=== PATIENT | male | born 1950 | race Caucasian/White ===

== ENCOUNTER 2017-05-26 06:43 | Inpatient (IN) | payer OTHER, MEDICARE ==
[2017-05-04 10:31] VITALS: BMI 32.0
--- NOTE | 2017-05-04 11:29 | PAT Medication Instructions ---
Service Date May 04, 2017. Current Home Medication List Acetaminophen (Tylenol Extra Strength), 2 TAB PO DAILY PRN for Pain or Fever Aspirin (Aspirin), 1 TAB PO QAM Calcium Carbonate-Vitamin D (Calcium 600 + D), 1 TAB PO BID Clopidogrel (Plavix), 75 MG PO QD@1700 Cyanocobalamin (Vitamin B-12 1000 Mcg), 1,000 MCG IM MONTHLY Cyanocobalamin (B-12), 1 TAB SL QAM Fenofibrate (Tricor ), 145 MG PO QAM Metoprolol Succ (Toprol Xl) (Toprol-Xl), 12.5 MG PO QAM Pantoprazole (Protonix), 40 MG PO BID Tamsulosin HCl (Tamsulosin HCl), 1 TAB PO QAM Medication Instructions For Your Scheduled Surgery - Continue as directed: Cyanocobalamin (Vitamin B-12 1000 Mcg), 1,000 MCG IM MONTHLY - Hold the following medications 7 days prior to surgery per anesthesia guidelines--check with your reimbursement liaison: Clopidogrel (Plavix), 75 MG PO QD@1700 - Hold the following medications 24 hours prior to surgery: Fenofibrate (Tricor ), 145 MG PO QAM - Hold the following medications the morning of surgery: Cyanocobalamin (B-12), 1 TAB SL QAM Calcium Carbonate-Vitamin D (Calcium 600 + D), 1 TAB PO BID - Take the following medications the morning of surgery with a sip of water: Metoprolol Succ (Toprol Xl) (Toprol-Xl), 12.5 MG PO QAM Pantoprazole (Protonix), 40 MG PO BID Tamsulosin HCl (Tamsulosin HCl), 1 TAB PO QAM Aspirin (Aspirin), 1 TAB PO QAM Acetaminophen (Tylenol Extra Strength), 2 TAB PO DAILY PRN for Pain or Fever ( if needed) - Take the following medications as scheduled the night before surgery: Pantoprazole (Protonix), 40 MG PO BID Calcium Carbonate-Vitamin D (Calcium 600 + D), 1 TAB PO BID If you have any questions please call us at [phone] or [phone] or [phone]
[2017-05-04 13:14] LABS: BUN/CREATININE RATIO 18.2 (10-20); CALCIUM 8.9 mg/dl (8.5-10.1); CREATININE 1.3 mg/dl (0.60-1.40); POTASSIUM 4.7 mmol/L (3.5-5.1)
[2017-05-04 13:17] LABS: BASO % 0.5 %; BASO ABS # 0.03 K/uL (0-0.2); COMPLETE YES; EOS % 1.6 %; HEMATOCRIT 44.4 % (42-52); IG% 0.2 %; LYMPH % 46.2 %; LYMPH ABS # 2.68 K/uL (1.2-3.4); MEAN CELL VOLUME 91.7 fL (80-100); MEAN CORPUSCULAR HEMOGLOBIN 32.6 pg (25-34); MEAN CORPUSCULAR HGB CONC 35.6 g/dl (32-36); MEAN PLATELET VOLUME 10.6 fL (7.4-10.4); MONO % 6.4 %; NEUT % 45.1 %; PLATELET COUNT 155 K/uL (130-400); RED BLOOD COUNT 4.84 M/uL (4.7-6.1); URINE APPEARANCE CLEAR (CLEAR); URINE BILIRUBIN NEG (NEG); URINE COLOR YELLOW; URINE EPITHELIAL CELL AUTO 20-30 /lpf (0-5); URINE NITRITE NEG (NEG); URINE SPECIFIC GRAVITY 1.022 (1.000-1.030); UROBILINOGEN NEG (NEG)
[2017-05-04 13:21] LABS: MANUAL MICROSCOPIC REQUIRED? NO; REVIEW REQ? NO
[2017-05-04 13:22] LABS: INR 1.1 (0.9-1.1)
--- NOTE | 2017-05-25 12:08 | HISTORY & PHYSICAL EXAMINATION ---
DATE OF ADMISSION: 05/26/2017 CHIEF COMPLAINT: Left knee pain. HISTORY OF PRESENT ILLNESS: The patient is a 67-year-old male with known osteoarthritis about his left knee. He has had previous right knee replacement surgery. He has pain and disability with activities of daily living. He has pain with prolonged weightbearing and standing activities. He has difficulty with any kneeling, bending, or squatting activities. He now desires to proceed with left total knee arthroplasty. PAST MEDICAL HISTORY: Hypertension, coronary artery disease status post bypass surgery, sleep apnea with CPAP use, osteoarthritis, kidney stones, enlarged prostate, and acid reflux. PAST SURGICAL HISTORY: Appendectomy, hernia surgery, back surgery, cholecystectomy, triple bypass surgery, cardiac stent placement, knee arthroscopy, right knee replacement, neck surgery, elbow surgery, and cataract surgery. MEDICATIONS: Toprol-XL ER 25 mg daily, Plavix 75 mg daily, pantoprazole sodium 40 mg twice daily, TriCor 145 mg daily, Flomax 0.4 mg daily, calcium plus D twice daily, baby aspirin 81 mg daily, and B12 injection monthly. ALLERGIES: PREDNISONE, WHICH CAUSES NAUSEA. SOCIAL HISTORY AND REVIEW OF SYSTEMS: Noncontributory. PHYSICAL EXAMINATION: GENERAL: Well-nourished and well-developed, obese male who appears his stated age. HEENT: Normocephalic and atraumatic. Extraocular movements intact. Oropharynx pink and moist. NECK: Supple without adenopathy. LUNGS: Clear to auscultation bilaterally. HEART: Regular rate and rhythm. ABDOMEN: Soft, nontender, nondistended, and obese. EXTREMITIES: The upper extremities are within normal limits. Left knee is neutrally aligned. His range of motion is from 0-120 degrees. X-RAYS: X-rays were reviewed. He has a slight varus aligned knee. He has [id number] arthritis of the medial compartment with complete loss of the joint space. There is mild osteoarthritis about the patellofemoral joint as well. ASSESSMENT: Left knee degenerative joint disease. PLAN: Risks versus benefits were discussed. Consent was obtained. The patient's primary care physician is Dr. Paulina Gonzalez. His learning technologies specialist is Dr. Nogueira. We will proceed with left total knee arthroplasty upon preoperative workup and medical clearance.
[2017-05-26] VITALS (8 sets, daily range): BP systolic 106–150; BP diastolic 61–89; PULSE 52–58; TEMP 36.4–36.7; O2SAT 94–97; Ht 180.3 cm; Wt 105.0 kg
[~2017-05-26] VITALS: Ht 180.3 cm; Wt 105.0 kg
[~2017-05-26 06:43] MED LIST: ACET-1257 PO; ACETAMINOPHEN 500 MG TAB PO SCH; ASPI81CH2 PO; BUPIVACAINE 0.5 % 5 MG/1 ML PF 10ML VIAL ONE; CALC-20 PO; CEFAZOLIN 2000MG IV PUSH 10 ML IV SCH; CLOP1TAB15 PO; CYAN10004 IM; CYAN50002 SL; CeleBREX 200 MG CAP PO SCH; DEXAMETHASONE 4 MG TAB PO SCH; FAMOTIDINE 20 MG TAB PO SCH; FENO145T26 PO; FLM4 PO; GABAPENTIN 300 MG CAP PO SCH; LACTATED RINGER'S 1000ML 1,000 ML IV SCH; LACTATED RINGER'S 1000ML IV SCH; METO-478 PO; METOCLOPRAMIDE HCL 10 MG TAB PO SCH; PANT40TA PO; PATIENT'S ALLERGY INFO NEEDS ENTERED SCH; ROPIVACAINE 5MG/ML 30 ML 150 MG, BUPIVACAINE/EPINEPHR 0.5% MPF 30 ML, KETOROLAC TROMETH... INFIL SCH
[2017-05-26] MEDS ORDERED: BUPIVACAINE 0.25% 30 ML VIAL ONE (06:44)
--- NOTE | 2017-05-26 07:19 | History & Physical Bridge Note ---
H&P Re-Evaluation Bridge Note: I have examined the patient, reviewed the History & Physical and in the interval since the performance of the History & Physical I have noted the following changes of clinical significance: No changes noted
[2017-05-26] MEDS ORDERED: MIDAZOLAM HCL 1 MG/ML 2ML VIAL ONE ×2 (08:53)
[2017-05-26] MEDS ORDERED: FENTANYL CITRATE INJ 50 MCG/1 ML 2 ML VIAL ONE (08:53)
[2017-05-26] MEDS ORDERED: POVIDONE-IODINE OP SOLN 30 ML BTL ONE (08:54)
[2017-05-26] MEDS ORDERED: ORTHO JOINT ANESTHETIC ONE (08:54)
[2017-05-26] MEDS ORDERED: BACITRACIN 50000 UNIT VIAL ONE (08:54)
[2017-05-26] MEDS ORDERED: FENTANYL CITRATE INJ 50 MCG/1 ML 2 ML VIAL IV PRN (09:00)
[2017-05-26] MEDS ORDERED: ONDANSETRON INJ 2 MG/ML 2 ML VIAL IV PRN ×2 (09:00→11:30)
[2017-05-26] MEDS ORDERED: EpHEDrine SULFATE INJ 50 MG/ML AMP IV PRN (09:00)
[2017-05-26] MEDS ORDERED: ATROPINE SULFATE 0.1 MG/ML 5ML SYR IV PRN (09:00)
[2017-05-26] MEDS: TRANEXAMIC ACID INJ 1,000 MG in SODIUM CHLORIDE 0.9% 100ML 100 ML IV SCH ×2 (09:09→12:02)
[2017-05-26] MEDS ORDERED: PROPOFOL IV EMULSION 10 MG/ML 20 ML VIAL IV ONE (10:07)
--- NOTE | 2017-05-26 10:41 | [facility] Post Operative Brief Note ---
Immediate Operative Summary Operative Date May 26, 2017. Pre-Operative Diagnosis Left knee degenerative joint disease Post-Operative Diagnosis same as pre-operative Procedure(s) Performed Left Total Knee Arthroplasty-cemented Surgeon Dr. Ramirez Outside Plant Technician Surgeon(s) Michael Rivero PA-C Estimated Blood Loss 20ml Findings oa Specimens Specimen A: Left knee bone and tissue Disposition Recovery Room / PACU
--- NOTE | 2017-05-26 10:55 | OPERATIVE REPORT ---
DATE OF OPERATION: 05/26/2017 PREOPERATIVE DIAGNOSIS: Osteoarthritis, left knee. POSTOPERATIVE DIAGNOSIS: Osteoarthritis, left knee. PROCEDURE: Left total knee arthroplasty. SURGEON: Dr. Ramirez. COMMERCIAL ILLUSTRATOR: Michael Rivero PA-C ANESTHESIA: Spinal. COMPLICATIONS: None. IMPLANTS USED: Femoral size 6, tibia size 5, tibial poly 9, and patella size 39. OPERATION AND FINDINGS: Following induction of spinal anesthesia, the patient's left leg was prepped and draped in the usual sterile manner. Limb was exsanguinated with an Esmarch bandage and tourniquet was inflated to 350 mmHg. A longitudinal incision was made anteriorly. Subcutaneous tissue was sharply dissected. Electrocautery was used for hemostasis. Prepatellar bursa was incised and median parapatellar incision was performed. Patella was everted and the knee was flexed. Fat pad was removed to aid in visualization and the anterior and posterior cruciate ligaments were removed. The medial face of the tibia was cleared of soft tissue first with a Bovie and a Momin elevator. This tissue was retracted posteriorly using a blunt Hohmann. A Dorman retractor was used to expose the synovium above on the anterior aspect of the femur and this was removed down to bone. The PSI guide was placed on the distal femur and two pins were placed anteriorly and kept in position and two additional pins were placed distally and removed. The distal femoral cutting block was placed in position and the distal femoral cut was used in the +0 setting. Next, the cutting block was removed and the femoral block was placed in the distal end of the femur. Care was taken to ensure appropriate external rotation and feeler gauge was used to ensure no notching would occur. The femoral block was centered on the distal femur and in the medial and lateral direction and was fixed using two bone screws. The gold pins were then removed. The oscillating saw was used to create the bone cuts and the distal femoral cutting block was removed and the reciprocating saw was used to further trim the femoral cuts as well as a deep in the area for the trochlear groove. Next, posterior condyle remnants were removed. Following this, a meniscal clamp and knife were utilized to remove the anterior portion of both medial and lateral meniscus. The proximal tibia PSI guide was placed into position and the proximal tibial cutting guide was screwed into position. The extra medullary alignment guide was utilized to ensure appropriate alignment. The proximal tibia was cut and the proximal tibial cutting block was removed and this bone fragment was removed. The appropriate guide was used to perform the notch cut on the distal femur and a lamina casting wheel operator helper and a cochlear knife were utilized to finish both medial and lateral meniscectomies to remove any remnants of the posterior or anterior cruciate ligaments. Following this, the distal femoral component was impacted into position and blunt Sp was used to sublux the tibia anteriorly. The proximal tibia was sized and a 5 tibial tray was chosen as the size to be used. This was put into position and appropriate external rotation and a double check with extramedullary alignment guide was performed. The canal for the tibial stem was prepared first with a 17 mm drill and then the punch and a mallet and the trial tibial poly was placed. A 9 was chosen the size to be used. It was brought to extension and the patella was prepared with the patellar reamer. A 39 component was chosen the size to be used. The trial component was placed and knee was taken through a full range of motion and there was found to be no lateral subluxation of the tibia. No lateral release was required. The trials were all removed. The final components were obtained and assembled. Cement was mixed. The knee was thoroughly irrigated and the ortho mix was injected about the knee joint. The final components were cemented into position. After thoroughly suctioning and drying the bone ends, all excess cement was removed. The knee was held in extension while the cement hardened. The wound was irrigated and closed over a Hemovac drain. #1 Vicryl was used to close the extensor mechanism. Subcutaneous tissues closed using 0 Dexon. Skin was closed with liane. Sterile dressing of Adaptic, 4 x 4's, sterile Webril, and Barrington was applied. The patient tolerated the procedure well. Due to the complex nature of the procedure, the entire surgery was performed with the operational assistance of Michael Rivero PA-C. The preschool assistant director, under direct supervision, was involved in the actual performance of all aspects of the surgical procedure including hemostasis, tissue retraction and incision, instrument management, patient positioning, and wound closure. DISPOSITION: Recovery room, stable. I attest to the content of the Intraoperative Record and any orders documented therein. Any exception s are noted below.
[2017-05-26] MEDS ORDERED: MoRPHine SULFATE 2 MG/ML CARP IV PRN (11:30)
[2017-05-26] MEDS ORDERED: ALUMINUM/MAGNESIUM/SIMETH (MAALOX MAX) 30 ML UDC PO PRN (11:30)
[2017-05-26] MEDS ORDERED: METOCLOPRAMIDE HCL INJ 5 MG/ML 2 ML VIAL IV PRN (11:30)
[2017-05-26] MEDS ORDERED: ZOLPIDEM TARTRATE 5 MG TAB PO PRN (11:30)
[2017-05-26] MEDS ORDERED: MAGNESIUM HYDROXIDE SUSP 30 ML UDC PO PRN (11:30)
--- NOTE | 2017-05-26 11:43 | Anesthesiology Progress Note ---
Anesthesia Post Op Note Date & Time May 26, 2017 at 11:43 Vital Signs Pain Intensity: 0 Vital Signs Past 12 Hours Date Time Temp Pulse Resp B/P (MAP) Pulse Ox O2 Delivery O2 Flow Rate FiO2 05/26/17 11:36 53 17 113/63 94 05/26/17 11:36 53 17 05/26/17 11:31 54 17 05/26/17 11:31 53 17 107/65 94 05/26/17 11:26 53 18 05/26/17 11:26 53 18 110/66 94 05/26/17 11:22 115/63 05/26/17 11:21 54 92 05/26/17 11:21 54 05/26/17 11:21 36.6 52 12 115/63 94 Oxymask 2 05/26/17 07:30 36.7 58 20 150/89 96 Room Air Notes Mental Status: alert / awake / arousable, participated in evaluation Pt Amnestic to Procedure: Yes Nausea / Vomiting: adequately controlled Pain: adequately controlled Airway Patency, RR, SpO2: stable & adequate BP & HR: stable & adequate Hydration State: stable & adequate Neuraxial Anesthesia: was administered, sensory block is resolving Anesthetic Complications: no major complications apparent
--- NOTE | 2017-05-26 11:53 | DIAGNOSTIC IMAGING REPORT ---
L KNEE 1 OR 2 VIEWS ROUTINE CLINICAL HISTORY: AP/LATERAL IN PACU LEFT KNEE joint replacement COMPARISON: None. DISCUSSION: Anatomic alignment status post total left knee replacement. Good contact between prosthetic and underlying bone. Surgical drains are present. IMPRESSION: Anatomic alignment status post total left knee replacement. The above report was generated using voice recognition software. It may contain grammatical, syntax or spelling errors. Electronically signed by: Josh Campa M.D. 05/26/2017 11:52 AM Dictated Date/Time: 05/26/2017 11:52 AM
[2017-05-26] MEDS ORDERED: MoRPHine SULFATE 4 MG/ML 1 ML CARP\\VIAL IV PRN (13:00)
[2017-05-26] MEDS ORDERED: MoRPHine SULFATE 10 MG/ML CARP/VIAL IV PRN (13:00)
[2017-05-26] MEDS: D5W AND 1/2NSS + 20MEQ KCL 1,000 ML IV SCH ×2 (13:21→22:34)
[2017-05-26] MEDS: ACETAMINOPHEN 500 MG TAB PO SCH ×2 (13:21→20:48)
--- NOTE | 2017-05-26 13:45 | Medical Consult ---
Consultation Date of Consultation: May 26, 2017. Attending Physician: Abelino Ramirez M.D. Reason for Consultation: Medical Management History of Present Illness Mr. Lovell is a 67 y/o male with PMHx of CAD S/P CABG x 3 (2003) and Stents x 3 (2005), HTN, OPHELIA on CPAP, BPH, and GERD who is S/P L TKA on 05/26. Patient follows with cardiology in [place] with last visitation prior to surgery. Patient reports stable cardiac status since his procedures. He denies chronic anginal issues or current anginal complaints. He denies H/O previous DVTs or PEs. He currently has no pain post-operatively and is able to move toes. He is passing gas and denies N/V/abdominal pain. Past Medical/Surgical History Medical Problems: (1) Arthritis of left knee (2) BPH (benign prostatic hyperplasia) (3) Coronary artery disease (4) GERD (gastroesophageal reflux disease) (5) Hypertension (6) OPHELIA on CPAP Surgical Problems: (1) S/P CABG x 3 (2) S/P coronary artery stent placement Family History Hypertension Social History Smoking Status: Never Smoker Smokeless Tobacco Use: No Alcohol Use: socially Drug Use: none Marital Status: Housing Status: lives with significant other Allergies Coded Allergies: Prednisone (Verified Adverse Reaction, Intermediate, NAUSEA/VOMITING, ) Current Inpatient Medications Current Inpatient Medications Medications (Trade) Dose Ordered Sig/Uziel Route Start Time Stop Time Status Last Admin Dose Admin Lactated Ringer's 1,000 ml @ 60 mls/hr [id number] IV 05/26/17 06:00 05/26/17 22:39 05/26/17 07:30 60 MLS/HR Cefazolin Sodium 10 ml @ 2.5 mls/min PREOP IV 05/26/17 06:00 05/26/17 18:00 05/26/17 09:42 2.5 MLS/MIN Acetaminophen (Tylenol Tab) 1,000 mg PREOP PO 05/26/17 06:00 05/26/17 18:00 05/26/17 07:44 1,000 MG Celecoxib (CeleBREX CAP) 200 mg PREOP PO 05/26/17 06:00 05/26/17 18:00 05/26/17 07:44 200 MG Dexamethasone (Decadron Tab) 8 mg PREOP PO 05/26/17 06:00 05/26/17 18:00 05/26/17 07:43 8 MG Famotidine (Pepcid Tab) 20 mg PREOP PO 05/26/17 06:00 05/26/17 18:00 05/26/17 07:43 20 MG Gabapentin (Neurontin Cap) 300 mg PREOP PO 05/26/17 06:00 05/26/17 18:00 05/26/17 07:43 300 MG Metoclopramide HCl (Reglan Tab) 10 mg PREOP PO 05/26/17 06:00 05/26/17 18:00 05/26/17 07:43 10 MG Tranexamic Acid 1000 mg/Sodium Chloride 110 ml @ 660 mls/hr TODAY@06,0630 IV 05/26/17 06:00 05/26/17 18:00 05/26/17 09:09 660 MLS/HR Ropivacaine 150 mg/Bupivacaine HCl/Epinephrine Bitart 30 ml/ Ketorolac Tromethamine 30 mg/Dexamethasone Sodium Phosphate 4 mg/Ketamine HCl 10 mg/Clonidine 100 mcg/Sodium Chloride 30 ml/ Empty Bag 93.2 ml @ 0 mls/hr TODAY@06 INFIL 05/26/17 06:00 05/26/17 18:00 05/26/17 10:38 93.2 MLS/HR Lactated Ringer's 1,000 ml @ 15 mls/hr Q24H IV 05/26/17 06:00 05/27/17 05:59 Fentanyl Citrate (Fentanyl Inj) 25 mcg Q5M PRN IV 05/26/17 09:00 05/26/17 14:00 Ondansetron HCl (Zofran Inj) 4 mg ONE PRN IV 05/26/17 09:00 05/26/17 14:00 Ephedrine Sulfate (EpHEDrine SULFATE INJ) 5 mg Q5M PRN IV 05/26/17 09:00 05/26/17 14:00 Atropine Sulfate (Atropine Sulfate 0.1MG/Ml Inj) 0.5 mg Q1M PRN IV 05/26/17 09:00 05/26/17 14:00 Potassium Chloride/Dextrose/ Sod Cl 1,000 ml @ 100 mls/hr Q10H IV 05/26/17 13:00 05/27/17 12:59 05/26/17 13:21 100 MLS/HR Ketorolac Tromethamine (Toradol Inj) 15 mg Q6 IV. 05/26/17 18:00 05/27/17 17:59 Celecoxib (CeleBREX CAP) 200 mg BID PO 05/27/17 21:00 06/26/17 20:59 Oxycodone HCl (Roxicodone Immediate Rel Tab) 1 TABLET FOR PAIN RATING... Q4H PRN PO 05/26/17 11:30 06/09/17 11:29 Morphine Sulfate (MoRPHine SULFATE INJ) 2 mg Q2HWA PRN IV 05/26/17 11:30 06/09/17 11:29 Acetaminophen (Tylenol Tab) 1,000 mg Q8 PO 05/26/17 14:00 06/25/17 13:59 05/26/17 13:21 1,000 MG Magnesium Hydroxide (Milk Of Magnesia Susp) 30 ml Q6H PRN PO 05/26/17 11:30 06/25/17 11:29 Docusate Sodium (coLACE CAP) 100 mg BID PO 05/26/17 21:00 06/25/17 20:59 Diphenhydramine HCl (Benadryl Cap) 25 mg Q8H PRN PO 05/26/17 11:30 06/25/17 11:29 Al Hydrox/Mg Hydrox/Simethicone (Maalox Max Susp) 15 ml Q4H PRN PO 05/26/17 11:30 06/25/17 11:29 Zolpidem Tartrate (Ambien Tab) 5 mg HSZ PRN PO 05/26/17 11:30 06/25/17 11:29 Multivitamins (Multivitamin Tab) 1 tab QAM PO 05/27/17 09:00 06/26/17 08:59 Ondansetron HCl (Zofran Inj) 4 mg Q6H PRN IV 05/26/17 11:30 06/25/17 11:29 Metoclopramide HCl (Reglan Inj) 10 mg Q6H PRN IV 05/26/17 11:30 06/25/17 11:29 Ferrous Gluconate (Ferrous Gluconate Tab) 324 mg TIDM PO 05/26/17 17:45 06/25/17 17:44 Pantoprazole Sodium (Protonix Tab) 40 mg QAM PO 05/27/17 09:00 06/26/17 08:59 Aspirin (Ecotrin Tab) 81 mg QAM PO 05/27/17 09:00 06/26/17 08:59 Clopidogrel Bisulfate (plAVix TAB) 75 mg DAILY@1700 PO 05/26/17 17:00 06/25/17 16:59 Fenofibrate (Tricor Tab) 145 mg QAM PO 05/27/17 09:00 06/26/17 08:59 Metoprolol Succinate (Toprol Xl Tab) 25 mg QAM PO 05/27/17 09:00 06/26/17 08:59 Tamsulosin HCl (Flomax Cap) 0.4 mg QAM PO 05/27/17 09:00 06/26/17 08:59 Cyanocobalamin (Vitamin B-12 Tab) 5,000 mcg QAM PO 05/27/17 09:00 06/26/17 08:59 Morphine Sulfate (MoRPHine SULFATE INJ) 4 mg Q2HWA PRN IV 05/26/17 13:00 06/09/17 12:59 Morphine Sulfate (MoRPHine SULFATE INJ) 6 mg Q2HWA PRN IV 05/26/17 13:00 06/09/17 12:59 Cefazolin Sodium 2000 mg/Syringe 10 ml @ 2.5 mls/min Q8H IV 05/26/17 18:00 05/27/17 02:03 Review of Systems Constitutional: No fever, No chills ENT: No nasal symptoms, No sore throat, No trouble swallowing Respiratory: No cough, No shortness of breath Cardiovascular: No chest pain, No palpitations Abdomen: No pain, No nausea, No vomiting, No diarrhea, No constipation Musculoskeletal: No joint pain, No swelling, No calf pain Genitourinary - Male: No dysuria Hematologic / Lymphatic: No abnormal bleeding/bruising, No clotting problems Integumentary: No rash Physical Exam Date Time Temp Pulse Resp B/P (MAP) Pulse Ox O2 Delivery O2 Flow Rate FiO2 05/26/17 13:10 58 17 143/64 (90) 97 Nasal Cannula 2.0 05/26/17 12:38 54 19 106/61 (76) 97 Nasal Cannula 2.0 05/26/17 12:10 36.4 54 16 126/71 (89) 94 Nasal Cannula 2.0 05/26/17 12:10 94 Nasal Cannula 2.0 05/26/17 12:10 94 Nasal Cannula 2.0 05/26/17 11:59 36.4 05/26/17 11:58 58 17 93 05/26/17 11:58 56 17 05/26/17 11:56 116/67 05/26/17 11:53 53 16 95 05/26/17 11:53 53 16 05/26/17 11:51 108/66 05/26/17 11:48 53 16 94 05/26/17 11:48 54 16 05/26/17 11:47 52 19 95 05/26/17 11:47 52 19 05/26/17 11:46 114/67 05/26/17 11:42 53 17 05/26/17 11:42 53 17 95 05/26/17 11:41 118/63 05/26/17 11:37 53 20 05/26/17 11:37 53 20 94 05/26/17 11:36 53 17 113/63 94 05/26/17 11:36 53 17 05/26/17 11:31 54 17 05/26/17 11:31 53 17 107/65 94 05/26/17 11:26 53 18 05/26/17 11:26 53 18 110/66 94 05/26/17 11:22 115/63 05/26/17 11:21 54 92 05/26/17 11:21 54 05/26/17 11:21 36.6 52 12 115/63 94 Oxymask 2 05/26/17 07:30 36.7 58 20 150/89 96 Room Air General Appearance: WD/WN, no apparent distress Head: normocephalic, atraumatic Eyes: sclerae normal ENT: hearing grossly normal Neck: supple, no JVD, trachea midline Respiratory/Chest: lungs clear, normal breath sounds, no respiratory distress, no accessory muscle use Cardiovascular: regular rate, rhythm, no gallop, no murmur Abdomen/GI: normal bowel sounds, non tender, soft Extremities/Musculoskelatal: normal capillary refill, no pedal edema, + pertinent finding (L knee with BARRINGTON wrap C/D/I; drain placed with blooding drainage) Neurologic/Psych: alert, oriented x 3 Skin: normal color, warm/dry Laboratory Results Last 24 Hours Test 10/26/17 12:57 Assessment & Plan Mr. Lovell is a 67 y/o male with PMHx of CAD S/P CABG x 3 (2003) and Stents x 3 (2005), HTN, OPHELIA on CPAP, BPH, and GERD who is S/P L TKA on 05/26. S/P L TKA on 05/26: - Pain management, IVF, DVT Prophylaxis, PT/OT per primary CAD S/P CABG x 3 and Stent x 3: STABLE - ASA 81 mg daily and Plavix 75 mg daily - Tricor 145 mg daily HTN: - Toprol XL 25 mg daily OPHELIA on CPAP: - May use own CPAP machine BPH: - Flomax 0.4 mg HS Thank you for the consultation. We will continue to follow. Reviewed: Pt Seen/Exam by Me History Physician Chemical Research Technician Supervision Note: I interviewed and examined the patient. Discussed with PATIRCK French and agree with findings and plan as documented in the note. Any exceptions or clarifications are listed here: Patient is a valentin 67-year-old male with past medical history noted as above. His records from his operations management trainee were reviewed and I would also like to add to his past medical history that he has an ascending thoracic aortic aneurysm that is 4.9 cm on an echocardiogram from August 2016 which is stable. He also has some mild aortic regurgitation. He had a nuclear medicine stress test in May 2016 that showed a small area of reversible ischemia in the inferolateral region which had actually improved from the prior stress test. That echocardiogram from 2016 showed a normal LVEF of 60% and no diastolic dysfunction. His operations management trainee felt he was at moderate risk for cardiovascular complication for this surgery. Patient is doing very well and has no complaints at all. Vitals reviewed, bradycardic No acute distress Regular rhythm, bradycardic, no murmur gallop or rub Lungs clear to auscultation bilaterally, no wheezes crackles rhonchi Abdomen positive bowel sounds soft nontender nondistended Extremities left lower extremity in large Barrington wrap not removed for exam, right leg with no edema, no calf tenderness, able to move the toes and plantar and dorsiflex bilateral legs, Hemovac draining bloody drainage from the left knee 67-year-old male here for left TKA-doing very well postoperatively -We'll monitor for signs of perioperative cardio vascular complications -continue home meds as above -It seems orthopedics has not added any additional DVT prophylaxis on top of his aspirin and Plavix which is reasonable Documented By: Radha Rubi
[2017-05-26] MEDS ORDERED: CEFAZOLIN IV 2,000 MG in DEXTROSE 5% 50ML 50 ML IV SCH (18:00)
[2017-05-26] MEDS: FERROUS GLUCONATE 324 MG TAB PO SCH (18:31)
[2017-05-26] MEDS: CLOPIDOGREL BISULFATE 75 MG TAB PO SCH (18:31)
[2017-05-26] MEDS: CEFAZOLIN IV 2,000 MG in SYRINGE 0 ML IV SCH (18:32)
[2017-05-26] MEDS: KETOROLAC TROMETHAMINE 15 MG/ML VIAL IV. SCH ×2 (18:32→23:28)
[2017-05-26] MEDS: DOCUSATE SODIUM 100 MG CAP PO SCH (20:48)
[2017-05-27] VITALS (7 sets, daily range): BP systolic 114–132; BP diastolic 67–82; PULSE 56–68; TEMP 36.4–36.9; O2SAT 95–98
[2017-05-27] MEDS: CEFAZOLIN IV 2,000 MG in SYRINGE 0 ML IV SCH (01:37)
[2017-05-27] MEDS: KETOROLAC TROMETHAMINE 15 MG/ML VIAL IV. SCH ×2 (05:36→12:15)
[2017-05-27] MEDS: ACETAMINOPHEN 500 MG TAB PO SCH ×3 (05:36→20:46)
[2017-05-27] MEDS: OXYCODONE HCL IR 5 MG TAB (IMMEDIATE RELEASE) PO PRN ×2 (05:58→17:03)
[2017-05-27 06:38] LABS: HEMATOCRIT 36.5 % (42-52); MEAN CELL VOLUME 89.2 fL (80-100); MEAN CORPUSCULAR HEMOGLOBIN 31.5 pg (25-34); MEAN CORPUSCULAR HGB CONC 35.3 g/dl (32-36); MEAN PLATELET VOLUME 10.8 fL (7.4-10.4); PLATELET COUNT 156 K/uL (130-400); RED BLOOD COUNT 4.09 M/uL (4.7-6.1); WHITE BLOOD COUNT 14.98 K/uL (4.8-10.8)
[2017-05-27 07:07] LABS: BUN/CREATININE RATIO 18.6 (10-20); CREATININE 1.36 mg/dl (0.60-1.40); POTASSIUM 4.3 mmol/L (3.5-5.1)
[2017-05-27] MEDS ORDERED: RXC5 PO (08:14)
[2017-05-27] MEDS ORDERED: CLB200 PO (08:14)
[2017-05-27] MEDS ORDERED: ASPI81CH2 PO (08:14)
[2017-05-27] MEDS ORDERED: ACET-1257 PO (08:14)
[2017-05-27] MEDS ORDERED: ONDA8TAB6 PO (08:15)
--- NOTE | 2017-05-27 08:15 | Orthopedic Progress Note ---
Orthopedic Progress Note Date of Service May 27, 2017. Subjective Post OP Day: 1 Reports: feeling well, pain controlled w PO medications, Denies: complaints Additional Notes: Sitting up at bedside. Feeling well. Objective calves soft nontender, N/V intact, dressing C/D/I, A&O x3, toes mobile, hemovac drainage (175ml) Date Time Temp Pulse Resp B/P (MAP) Pulse Ox O2 Delivery O2 Flow Rate FiO2 05/27/17 08:04 Room Air 05/27/17 07:07 36.7 68 16 124/73 (90) 95 Room Air 05/27/17 03:19 36.4 60 16 114/70 (85) 95 BiPAP 05/26/17 23:39 36.5 52 16 126/73 (90) 96 BiPAP 05/26/17 23:33 Room Air 05/26/17 18:19 36.4 57 17 134/77 (96) 97 Room Air 05/26/17 15:04 36.4 52 16 113/71 (85) 96 Nasal Cannula 2.0 05/26/17 15:00 Nasal Cannula 2.0 05/26/17 14:10 54 18 124/72 (89) 97 Nasal Cannula 2.0 05/26/17 13:10 58 17 143/64 (90) 97 Nasal Cannula 2.0 05/26/17 12:38 54 19 106/61 (76) 97 Nasal Cannula 2.0 05/26/17 12:10 36.4 54 16 126/71 (89) 94 Nasal Cannula 2.0 05/26/17 12:10 94 Nasal Cannula 2.0 05/26/17 12:10 94 Nasal Cannula 2.0 05/26/17 11:59 36.4 05/26/17 11:58 58 17 93 05/26/17 11:58 56 17 05/26/17 11:56 116/67 05/26/17 11:53 53 16 95 05/26/17 11:53 53 16 05/26/17 11:51 108/66 05/26/17 11:48 53 16 94 05/26/17 11:48 54 16 05/26/17 11:47 52 19 95 05/26/17 11:47 52 19 05/26/17 11:46 114/67 05/26/17 11:42 53 17 05/26/17 11:42 53 17 95 05/26/17 11:41 118/63 05/26/17 11:37 53 20 05/26/17 11:37 53 20 94 05/26/17 11:36 53 17 113/63 94 05/26/17 11:36 53 17 05/26/17 11:31 54 17 05/26/17 11:31 53 17 107/65 94 05/26/17 11:26 53 18 05/26/17 11:26 53 18 110/66 94 05/26/17 11:22 115/63 05/26/17 11:21 54 92 05/26/17 11:21 54 05/26/17 11:21 36.6 52 12 115/63 94 Oxymask 2 Laboratory Results 24 Hours: Test 05/27/17 06:10 Hematocrit 36.5 % Hemoglobin 12.9 g/dL Assessment & Plan Assessment: POD 1 s/p Left TKA Plan: PT/OT Planning for OPPT Inhouse Planning Pain Management: Celebrex, Toradol, Ultram, Morphine, PO Tylenol, Oxy IR DVT Prophylaxis: TEDs, SCDs, ASA, other (PLavix) Discharge Planning Discharge Planning: home with oppt
--- NOTE | 2017-05-27 08:17 | Discharge Instructions ---
Discharge Instructions Date of Service May 27, 2017. Admission Reason for Admission: Left Knee Osteoarthritis Discharge Discharge Diagnosis / Problem: SP LEFT TKA Discharge Goals Goal(s): Decrease discomfort, Improve function, Increase independence Activity Recommendations Activity Limitations: per Instructions/Follow-up section . Instructions / Follow-Up Instructions / Follow-Up ACTIVITY RECOMMENDATIONS: SELF CARE INSTRUCTIONS AFTER TOTAL KNEE REPLACEMENT A. You may need to continue a physical therapy program after discharge from the hospital. There are several options available to you. Your doctor will assist you in selecting the best one for you. 1. An out-patient facility 2 to 3 times a week for therapy or home therapy. 2. Continue working on all exercises taught to you in the hospital. Your goals should be to increase bending of your knee to 90 degrees and beyond and to fully straighten your knee. B. You may progress at your own pace from walking with a walker or crutches to a cane; then to no assistive devices. C. Make walking a part of your daily routine. Be up as much as comfortable with rest periods throughout the day. Rest with leg elevation is very important. Use the ice wrap frequently for the first 3-4 weeks. D. There are no restrictions on activities. You may ride in a car, shop, participate in metal sander and finisher and all social activities. E. Wear the long elastic stockings (JENNIFER hose) 20 hours a day for 2 weeks after surgery. They can be removed several times a day for laundering and for a bath. F. You may shower, no tub baths until cleared by your doctor. SPECIAL CARE INSTRUCTIONS: VERY IMPORTANT TO READ AND REVIEW A. There are a few signs you need to watch for after you are home. Call [facility] if you notice any of the followin. Increased severe knee pain. Some pain is expected especially when you exercise. 2. Increased swelling in your leg or knee; pain or swelling of the calf muscle in either lower leg. 3. Any fluid drainage from the incision. 4. Shortness of breath or chest pain. B. Please call [facility] at if you have any concerns or questions about your operation or recovery. The doctor or his nurse will return your call promptly. C. You must take antibiotics before dental work, bladder, bowel or other surgery. Your doctor will provide you with a permanent care to carry describing this precaution. IMPORTANT: * REMEMBER TO TAKE ASPIRIN, 81 MG, TWICE DAILY FOR 4 WEEKS UNLESS OTHERWISE DIRECTED. THIS IS YOUR BLOOD THINNER. * HIGH RISK PATIENTS MAY BE PRESCRIBED A STRONGER BLOOD THINNER. THIS WILL BE PROVIDED AT DISCHARGE. * CALL IF INCREASED PAIN, REDNESS, DRAINAGE OR FEVER GREATER THAT 101. * WEAR JENNIFER HOSE 20 HOURS PER DAY FOR 2 WEEKS. * YOU MAY HAVE A LARGE BAND-AID LIKE DRESSING (SILVERON). THIS WILL REMAIN ON YOUR INCISION FOR 7 DAYS, THEN CAN BE REMOVED. IF INCISION IS LEAKING THROUGH DRESSING, CALL THE OFFICE . UNDER THE SILVERLON YOU HAVE A ZIPLINE CLOSURE. THIS IS IN PLACE OF TAMIE AND WILL BE REMOVED AT YOUR 2 WEEK VISIT. CONTINUE TO KEEP CLEAN AND DRY. LEAVE IN PLACE. FOLLOW UP VISIT: If appointment is not already scheduled: Please call [facility] to make a follow-up appointment for 2 weeks after your surgery at . Current Hospital Diet Patient's current hospital diet: Regular Diet Discharge Diet Recommended Diet: Regular Diet Procedures Procedures Performed: Left Total Knee Arthroplasty-cemented Pending Studies Studies pending at discharge: no Laboratory Results Hemoglobin A1c Test 05/04/17 11:50 Range/Units Estimated Average Glucose 111 mg/dl Hemoglobin A1c 5.5 4.5-5.6 % Medical Emergencies . Who to Call and When: Medical Emergencies: If at any time you feel your situation is an emergency, please call 911 immediately. . Non-Emergent Contact Non-Emergency issues call your: Surgeon . "Provider Documentation" section prepared by Luz Lindquist. . VTE Core Measure Inpt VTE Proph given/why not?: Other Anticoagulation (PLAVIX/ASA), T.EMichael Nayak, SCD's [place] Drug Monitoring Program Search Results: patient reviewed within database, no issues identified
[2017-05-27] MEDS: D5W AND 1/2NSS + 20MEQ KCL 1,000 ML IV SCH (08:41)
[2017-05-27] MEDS: ASPIRIN 81 MG ECTAB PO SCH (08:41)
[2017-05-27] MEDS: MULTIVITAMIN TAB PO SCH (08:41)
[2017-05-27] MEDS: METOPROLOL SUCC 25MG EXT REL TAB PO SCH (08:41)
[2017-05-27] MEDS: DOCUSATE SODIUM 100 MG CAP PO SCH ×2 (08:41→20:45)
[2017-05-27] MEDS: CYANOCOBALAMIN 2,500 MCG SUBL TAB PO SCH (08:41)
[2017-05-27] MEDS: TAMSULOSIN HCL 0.4 MG CAP PO SCH (08:41)
[2017-05-27] MEDS: FERROUS GLUCONATE 324 MG TAB PO SCH ×3 (08:41→17:02)
[2017-05-27] MEDS: PANTOprazole SOD 40 MG TAB PO SCH (08:41)
[2017-05-27] MEDS: FENOFIBRATE 145 MG TAB PO SCH (09:07)
[2017-05-27] MEDS ORDERED: NURSING VERBAL MED ORDER ONE (10:45)
--- NOTE | 2017-05-27 12:38 | Hospitalist Progress Note ---
Hospitalist Progress Note Date of Service May 27, 2017. (Demetria Romero ., AMBER) Subjective Pt evaluation today including: conversation w/ patient, physical exam, lab review, review of studies, review of inpatient medication list Voiding: no voiding problems Patient feeling well. Eating and drinking OK. +BM this AM. Pain is well controlled. Patient denies any fever, chills, sweats, lightheadedness, dizziness, vision changes, CP, palpitations, edema, SOB, wheezing, cough, abdominal pain, nausea, vomiting, diarrhea, urinary symptoms, melena, numbness/tingling, weakness, anxiety/depression, active bleeding, or new skin discoloration/changes. (Demetria Romero ., ANGELAC) Medications Current Inpatient Medications Medications (Trade) Dose Ordered Sig/Uziel Route Start Time Stop Time Status Last Admin Dose Admin Potassium Chloride/Dextrose/ Sod Cl 1,000 ml @ 100 mls/hr Q10H IV 05/26/17 13:00 05/27/17 12:59 05/26/17 22:34 100 MLS/HR Ketorolac Tromethamine (Toradol Inj) 15 mg Q6 IV. 05/26/17 18:00 05/27/17 17:59 05/27/17 05:36 15 MG Celecoxib (CeleBREX CAP) 200 mg BID PO 05/27/17 21:00 06/26/17 20:59 Oxycodone HCl (Roxicodone Immediate Rel Tab) 1 TABLET FOR PAIN RATING... Q4H PRN PO 05/26/17 11:30 06/09/17 11:29 05/27/17 05:58 10 MG Morphine Sulfate (MoRPHine SULFATE INJ) 2 mg Q2HWA PRN IV 05/26/17 11:30 06/09/17 11:29 Acetaminophen (Tylenol Tab) 1,000 mg Q8 PO 05/26/17 14:00 06/25/17 13:59 05/27/17 05:36 1,000 MG Magnesium Hydroxide (Milk Of Magnesia Susp) 30 ml Q6H PRN PO 05/26/17 11:30 06/25/17 11:29 Docusate Sodium (coLACE CAP) 100 mg BID PO 05/26/17 21:00 06/25/17 20:59 05/27/17 08:41 100 MG Diphenhydramine HCl (Benadryl Cap) 25 mg Q8H PRN PO 05/26/17 11:30 06/25/17 11:29 Al Hydrox/Mg Hydrox/Simethicone (Maalox Max Susp) 15 ml Q4H PRN PO 05/26/17 11:30 06/25/17 11:29 Zolpidem Tartrate (Ambien Tab) 5 mg HSZ PRN PO 05/26/17 11:30 06/25/17 11:29 05/26/17 23:28 5 MG Multivitamins (Multivitamin Tab) 1 tab QAM PO 05/27/17 09:00 06/26/17 08:59 05/27/17 08:41 1 TAB Ondansetron HCl (Zofran Inj) 4 mg Q6H PRN IV 05/26/17 11:30 06/25/17 11:29 Metoclopramide HCl (Reglan Inj) 10 mg Q6H PRN IV 05/26/17 11:30 06/25/17 11:29 Ferrous Gluconate (Ferrous Gluconate Tab) 324 mg TIDM PO 05/26/17 17:45 06/25/17 17:44 05/27/17 08:41 324 MG Pantoprazole Sodium (Protonix Tab) 40 mg QAM PO 05/27/17 09:00 06/26/17 08:59 05/27/17 08:41 40 MG Aspirin (Ecotrin Tab) 81 mg QAM PO 05/27/17 09:00 06/26/17 08:59 05/27/17 08:41 81 MG Clopidogrel Bisulfate (plAVix TAB) 75 mg DAILY@1700 PO 05/26/17 17:00 06/25/17 16:59 05/26/17 18:31 75 MG Fenofibrate (Tricor Tab) 145 mg QAM PO 05/27/17 09:00 06/26/17 08:59 05/27/17 09:07 145 MG Metoprolol Succinate (Toprol Xl Tab) 25 mg QAM PO 05/27/17 09:00 06/26/17 08:59 05/27/17 08:41 25 MG Tamsulosin HCl (Flomax Cap) 0.4 mg QAM PO 05/27/17 09:00 06/26/17 08:59 05/27/17 08:41 0.4 MG Cyanocobalamin (Vitamin B-12 Tab) 5,000 mcg QAM PO 05/27/17 09:00 06/26/17 08:59 05/27/17 08:41 5,000 MCG Morphine Sulfate (MoRPHine SULFATE INJ) 4 mg Q2HWA PRN IV 05/26/17 13:00 06/09/17 12:59 Morphine Sulfate (MoRPHine SULFATE INJ) 6 mg Q2HWA PRN IV 05/26/17 13:00 06/09/17 12:59 (Demetria Romero, AMBER) Objective Vital Signs Date Time Temp Pulse Resp B/P (MAP) Pulse Ox O2 Delivery O2 Flow Rate FiO2 05/27/17 09:18 97 Room Air 05/27/17 08:04 Room Air 05/27/17 08:02 36.4 67 18 120/68 (85) 97 Room Air 05/27/17 07:07 36.7 68 16 124/73 (90) 95 Room Air 05/27/17 03:19 36.4 60 16 114/70 (85) 95 BiPAP 05/26/17 23:39 36.5 52 16 126/73 (90) 96 BiPAP 05/26/17 23:33 Room Air 05/26/17 18:19 36.4 57 17 134/77 (96) 97 Room Air 05/26/17 15:04 36.4 52 16 113/71 (85) 96 Nasal Cannula 2.0 05/26/17 15:00 Nasal Cannula 2.0 05/26/17 14:10 54 18 124/72 (89) 97 Nasal Cannula 2.0 05/26/17 13:10 58 17 143/64 (90) 97 Nasal Cannula 2.0 05/26/17 12:38 54 19 106/61 (76) 97 Nasal Cannula 2.0 05/26/17 12:10 36.4 54 16 126/71 (89) 94 Nasal Cannula 2.0 05/26/17 12:10 94 Nasal Cannula 2.0 05/26/17 12:10 94 Nasal Cannula 2.0 05/26/17 11:59 36.4 05/26/17 11:58 58 17 93 05/26/17 11:58 56 17 05/26/17 11:56 116/67 05/26/17 11:53 53 16 95 05/26/17 11:53 53 16 05/26/17 11:51 108/66 05/26/17 11:48 53 16 94 05/26/17 11:48 54 16 05/26/17 11:47 52 19 95 05/26/17 11:47 52 19 05/26/17 11:46 114/67 05/26/17 11:42 53 17 05/26/17 11:42 53 17 95 05/26/17 11:41 118/63 05/26/17 11:37 53 20 05/26/17 11:37 53 20 94 05/26/17 11:36 53 17 113/63 94 05/26/17 11:36 53 17 05/26/17 11:31 54 17 05/26/17 11:31 53 17 107/65 94 05/26/17 11:26 53 18 05/26/17 11:26 53 18 110/66 94 05/26/17 11:22 115/63 05/26/17 11:21 54 92 05/26/17 11:21 54 05/26/17 11:21 36.6 52 12 115/63 94 Oxymask 2 (Demetria Romero PA-C) Physical Exam General Appearance: no apparent distress Eyes: normal inspection, PERRL ENT: hearing grossly normal Neck: supple Respiratory/Chest: lungs clear, no respiratory distress, no accessory muscle use Cardiovascular: regular rate, rhythm Abdomen: normal bowel sounds, non tender, soft Extremities: no pedal edema, no calf tenderness Neurologic/Psychiatric: no motor/sensory deficits, alert, oriented x 3 Skin: normal color, warm/dry, no rash (Demetria Romero, PA-C) Laboratory Results Last 24 Hours Test 05/26/17 12:57 05/27/17 06:10 Hepatitis C Antibody Screen NEG White Blood Count 14.98 K/uL Red Blood Count 4.09 M/uL Hemoglobin 12.9 g/dL Hematocrit 36.5 % Mean Corpuscular Volume 89.2 fL Mean Corpuscular Hemoglobin 31.5 pg Mean Corpuscular Hemoglobin Concent 35.3 g/dl RDW Standard Deviation 39.6 fL RDW Coefficient of Variation 12.2 % Platelet Count 156 K/uL Mean Platelet Volume 10.8 fL Sodium Level 139 mmol/L Potassium Level 4.3 mmol/L Chloride Level 108 mmol/L Carbon Dioxide Level 23 mmol/L Anion Gap 8.0 mmol/L Blood Urea Nitrogen 25 mg/dl Creatinine 1.36 mg/dl Est Creatinine Clear Calc Drug Dose 63.2 ml/min Estimated GFR () 61.1 Estimated GFR (Non- 52.7 BUN/Creatinine Ratio 18.6 Random Glucose 124 mg/dl Calcium Level 8.0 mg/dl (Demetria Romero ., AMBER) Assessment and Plan Mr. Lovell is a 67 y/o male with PMHx of CAD S/P CABG x 3 (2003) and Stents x 3 (2005), HTN, OPHELIA on CPAP, BPH, and GERD who is S/P L TKA on 05/26. s/p L TKA on 05/[address] Ramirez: - Pain management, IVF, DVT prophylaxis, PT/OT per primary - Postop CBC and PRP- STABLE -- Leukocytosis, likely secondary to pain response/IV steroids- no s/s of infection- continue to follow - Encouraged incentive spirometer CAD s/p CABG x3 and stent x3, HTN- STABLE: ASA 81 mg daily, Plavix 75 mg daily, Tricor 145 mg daily, Toprol XL 25 mg daily OPHELIA on CPAP: CPAP HS BPH: Flomax 0.4 mg HS GERD: Protonix 40 mg daily DVT prophylaxis: ASA + Plavix as per surgical team Code Status: LEVEL I, FULL Dispo: As per primary team- planning for discharge home w/ OPPT (Demetria Romero, AMBER) PA Physician Supervision Note: I interviewed and examined the patient. Discussed with Demetria Romero PAC and agree with findings and plan as documented in the note. Any exceptions or clarifications are listed here: None Patient is doing well postoperatively from left total knee arthroplasty having some drainage in his Hemovac pain control is good Vitals are stable heart is regular lungs are clear Patient will continue uses BiPAP at night for his obstructive sleep apnea maintaining his cardio vascular medicine's meds for BPH if his Hemovac does reduce drainage he may be anticipated to be discharged in the next 1-2 days Documented By: Jitendra Carmichael (Jitendra Carmichael M.D.)
[2017-05-27] MEDS: CLOPIDOGREL BISULFATE 75 MG TAB PO SCH (17:04)
[2017-05-27] MEDS: CeleBREX 200 MG CAP PO SCH (20:46)
[2017-05-28] MEDS: OXYCODONE HCL IR 5 MG TAB (IMMEDIATE RELEASE) PO PRN ×2 (01:18→08:14)
[2017-05-28] MEDS: ACETAMINOPHEN 500 MG TAB PO SCH (06:11)
[2017-05-28 06:35] LABS: HEMATOCRIT 32.5 % (42-52); MEAN CELL VOLUME 90.8 fL (80-100); MEAN CORPUSCULAR HEMOGLOBIN 31.3 pg (25-34); MEAN CORPUSCULAR HGB CONC 34.5 g/dl (32-36); MEAN PLATELET VOLUME 10.6 fL (7.4-10.4); PLATELET COUNT 119 K/uL (130-400); RED BLOOD COUNT 3.58 M/uL (4.7-6.1); WHITE BLOOD COUNT 9.45 K/uL (4.8-10.8)
[2017-05-28 07:05] VITALS: BP 129/69; PULSE 53; TEMP 36.6; O2SAT 97
[2017-05-28] MEDS: TAMSULOSIN HCL 0.4 MG CAP PO SCH (08:15)
[2017-05-28] MEDS: CYANOCOBALAMIN 2,500 MCG SUBL TAB PO SCH (08:15)
[2017-05-28] MEDS: CeleBREX 200 MG CAP PO SCH (08:15)
[2017-05-28] MEDS: DOCUSATE SODIUM 100 MG CAP PO SCH (08:15)
[2017-05-28] MEDS: ASPIRIN 81 MG ECTAB PO SCH (08:15)
[2017-05-28] MEDS: FENOFIBRATE 145 MG TAB PO SCH (08:15)
[2017-05-28] MEDS: MULTIVITAMIN TAB PO SCH (08:16)
[2017-05-28] MEDS: METOPROLOL SUCC 25MG EXT REL TAB PO SCH (08:16)
[2017-05-28] MEDS: PANTOprazole SOD 40 MG TAB PO SCH (08:16)
[2017-05-28] MEDS: FERROUS GLUCONATE 324 MG TAB PO SCH (08:16)
--- NOTE | 2017-05-28 08:35 | Orthopedic Progress Note ---
Orthopedic Progress Note Date of Service May 28, 2017. Subjective Post OP Day: 2 Reports: feeling well, Denies: chest pain, SOB, nausea / vomiting, light headedness, calf pain Objective calves soft nontender, N/V intact, capillary refill less than 2 sec., incision C /D/I (zipline), A&O x3, toes mobile Date Time Temp Pulse Resp B/P (MAP) Pulse Ox O2 Delivery O2 Flow Rate FiO2 05/28/17 07:05 36.6 53 16 129/69 (89) 97 Room Air 05/28/17 00:30 CPAP 05/27/17 23:31 36.7 58 16 120/67 (84) 96 BiPAP 05/27/17 19:10 Room Air 05/27/17 15:17 36.9 56 16 129/82 (98) 98 Room Air 05/27/17 12:05 36.5 61 19 132/70 (90) 95 Room Air 05/27/17 09:18 97 Room Air Laboratory Results 24 Hours: Test 05/28/17 05:58 Hematocrit 32.5 % Hemoglobin 11.2 g/dL Assessment & Plan Assessment: POD 2 s/p Left TKA Plan: PT/OT Planning for OPPT- DC HOME TODAY PAIN MANAGEMENT- RANJIT, TYLENOL, CELEBREX DVT PROPH- PLAVIX + ASA Inhouse Planning Pain Management: Celebrex, Toradol, Ultram, Morphine, PO Tylenol, Oxy IR DVT Prophylaxis: TEDs, SCDs, ASA, other (PLavix) Discharge Planning Discharge Planning: home with oppt
[2017-05-28 09:41] VITALS: BP 129/69; PULSE 53; TEMP 36.6; O2SAT 97
[2017-05-28 09:42] VITALS: BP 150/74; PULSE 71; O2SAT 97
--- NOTE | 2017-06-08 15:02 | DISCHARGE SUMMARY ---
CHIEF COMPLAINT: Left knee pain. Please see complete history and physical examination. HOSPITAL COURSE: The patient underwent a left total knee arthroplasty without complication. He tolerated the procedure well and his postoperative course was relatively uneventful. His postoperative pain was reasonably well controlled with a combination of spinal anesthesia, intraoperative joint injection, IV, and oral pain medications. He was resumed on his normal Plavix as well as aspirin 81 mg b.i.d. postoperatively for DVT prophylaxis. He also utilized JENNIFER stockings and SCDs for additional prophylaxis. His H&H was stable and did not require transfusion. A medical consult was asked for to assist in his postoperative medical management. Again, he did not have any significant postoperative medical issues. His surgical drain was discontinued by postoperative day #2. His surgical dressing will remain in place for approximately 7 days postoperative. He tolerated postop physical therapy reasonably well as he was bending his knee and ambulating appropriately. He was discharged home on postoperative day #2. He will continue his physical therapy as an outpatient. He will continue his Plavix and aspirin for DVT prophylaxis and follow up in our office in approximately 10-14 days for his initial postop evaluation.
== END 2017-05-28 11:35 | disposition home or self-care (01) | DRG 470 ==
LOC: C.ACU 06:43 → C.3E 09:09 → ENRESERV 11:43
PROC: 0SRD0J9 Replacement of Left Knee Joint with Synthetic Substitute, Cemented, Open Approach (ICD-10-PCS; principal; 2017-05-26 09:15)
DX: M17.12 Unilateral primary osteoarthritis, left knee (principal); I10 Essential (primary) hypertension; I25.10 Atherosclerotic heart disease of native coronary artery without angina pectoris; K21.9 Gastro-esophageal reflux disease without esophagitis; G47.33 Obstructive sleep apnea (adult) (pediatric); N40.0 Benign prostatic hyperplasia without lower urinary tract symptoms; Z79.02 Long term (current) use of antithrombotics/antiplatelets; Z79.899 Other long term (current) drug therapy; Z79.82 Long term (current) use of aspirin; Z95.1 Presence of aortocoronary bypass graft; Z95.5 Presence of coronary angioplasty implant and graft

== ENCOUNTER → 2018-03-16 | Outpatient (CLI) | payer OTHER, MEDICARE ==
[~2018-03-16] MED LIST changes: -ACETAMINOPHEN 500 MG TAB PO SCH; -BUPIVACAINE 0.5 % 5 MG/1 ML PF 10ML VIAL ONE; -CEFAZOLIN 2000MG IV PUSH 10 ML IV SCH; +CLB200 PO; -CeleBREX 200 MG CAP PO SCH; -DEXAMETHASONE 4 MG TAB PO SCH; -FAMOTIDINE 20 MG TAB PO SCH; -GABAPENTIN 300 MG CAP PO SCH; -LACTATED RINGER'S 1000ML 1,000 ML IV SCH; -LACTATED RINGER'S 1000ML IV SCH; -METOCLOPRAMIDE HCL 10 MG TAB PO SCH; -PATIENT'S ALLERGY INFO NEEDS ENTERED SCH; -ROPIVACAINE 5MG/ML 30 ML 150 MG, BUPIVACAINE/EPINEPHR 0.5% MPF 30 ML, KETOROLAC TROMETH... INFIL SCH; +RXC5 PO
[2018-03-16 10:22] LABS: HEMATOCRIT 46.6 % (42-52); HEMOGLOBIN 16.2 g/dL (14.0-18.0); MEAN CELL VOLUME 91.9 fL (80-100); MEAN CORPUSCULAR HGB CONC 34.8 g/dl (32-36); MEAN PLATELET VOLUME 11.3 fL (7.4-10.4); PLATELET COUNT 123 K/uL (130-400); RED CELL DISTRIBUTION WIDTH CV 13.2 % (11.5-14.5); RED CELL DISTRIBUTION WIDTH SD 43.7 fL (36.4-46.3); WHITE BLOOD COUNT 5.19 K/uL (4.8-10.8)
--- NOTE | 2018-03-16 13:41 | DIAGNOSTIC IMAGING REPORT ---
BONE SCAN 3 PHASE LIMITED CLINICAL HISTORY: R/O ASEPTIC LOOSENING pain TECHNIQUE: Multi phase evaluation following the administration of 27.5 mCi technetium 99m MDP. FINDINGS: Initial dynamic vascular flow images show an increase in activity about the right inferior knee. Static delayed images are unremarkable. There is a slight increase in activity about the general region of the left knee. Static delayed images show an increase in activity about the patient's total left knee prosthetic with unremarkable activity in the right. IMPRESSION: 1. Findings suggesting potential early loosening of the patient's total left knee prosthetic.. 2. No significant evidence for loosening of the total right knee prosthetic. The above report was generated using voice recognition software. It may contain grammatical, syntax or spelling errors. Electronically signed by: Josh Campa M.D. 03/16/2018 1:40 PM Dictated Date/Time: 03/16/2018 1:36 PM
== END | disposition home or self-care (01) ==
LOC: C.NUCL 09:22
DX: T84.039A Mechanical loosening of unspecified internal prosthetic joint, initial encounter (principal); X58.XXXA Exposure to other specified factors, initial encounter; M25.561 Pain in right knee; Z96.653 Presence of artificial knee joint, bilateral